=== PATIENT | female | born 1970 | race Caucasian/White ===

== ENCOUNTER 2024-04-14 07:55 | Day surgery (SDC) | payer OTHER ==
[~2024-04-14] VITALS: Ht 149.9 cm; Wt 83.5 kg
[2024-04-14] MEDS ORDERED: fentaNYL citrate 0.05 MG/ML VIAL ONE (09:29)
[2024-04-14] MEDS: fentaNYL citrate 0.05 MG/ML VIAL IVP ONE (10:07)
[2024-04-14] MEDS: LIDOCAINE 2% 100 MG/5 ML UJET TP ONE (10:16)
== END 2024-04-14 11:14 | disposition home or self-care (01) ==
LOC: MMU 07:55 → MOR 07:55
PROVIDERS: ATTEND Internal Medicine Gastroenterology
DX: Z12.11 Encounter for screening for malignant neoplasm of colon (principal); E11.9 Type 2 diabetes mellitus without complications; Z86.010 Personal history of colon polyps; Z79.82 Long term (current) use of aspirin; Z98.891 History of uterine scar from previous surgery; Z79.899 Other long term (current) drug therapy; Z98.890 Other specified postprocedural states
CPT/HCPCS: 45378; 82948; J3010